=== PATIENT | female | born 1990 | race African-American/Black ===

== ENCOUNTER 2021-05-07 15:23 | Emergency (ER) | payer OTHER ==
[~2021-05-07] VITALS: Ht 139.7 cm; Wt 65.8 kg
--- NOTE | 2021-05-07 15:35 | NUR ---
Patient came in to the er c/o +SI " i want to jump off the building",-HI. On room air, breathing evenly and unlabored. Kept comfortable, will continue to monitor accordingly.
[2021-05-07 16:17] LABS: BASOPHILS % (AUTO) 0.5 % (0.0-2.0); EOSINOPHILS % (AUTO) 1.4 % (0.0-6.0); HEMATOCRIT 41 % (33-45); HEMOGLOBIN 13.7 g/dL (11.5-14.8); LYMPHOCYTES # (AUTO) 1.6 K/uL (0.8-4.8); LYMPHOCYTES % (AUTO) 18.4 % (20.0-44.0); MEAN CORPUSCULAR HGB CONC 34 g/dl (31.0-36.0); MEAN CORPUSCULAR VOLUME 99 fL (82-100); MONOCYTES # (AUTO) 0.6 K/uL (0.1-1.30); MONOCYTES % (AUTO) 6.6 % (2.0-12.0); NEUTROPHILS # (AUTO) 6.4 K/uL (1.8-8.9); NEUTROPHILS % (AUTO) 73.1 % (43.0-81.0); PLATELET COUNT (AUTO) 216 K/uL (150-450); WHITE BLOOD COUNT (AUTO) 8.8 K/uL (4.3-11.0)
[2021-05-07 16:24] LABS: CALCIUM, SERUM 8.9 mg/dL (8.5-10.1); CARBON DIOXIDE 26 mmol/L (21-32); CHLORIDE 103 mmol/L (98-107); CREATININE 0.8 mg/dL (0.6-1.3); GLUCOSE 108 mg/dL (74-106); POTASSIUM 3.5 mmol/L (3.5-5.1); SODIUM SERUM 137 mmol/L (136-145); UREA NITROGEN, BLOOD 7 mg/dL (7-18)
[2021-05-07 16:26] LABS: BILIRUBIN,URINE NEGATIVE (NEGATIVE); COLOR,URINE YELLOW (YELLOW); LEUKOCYTE ESTERASE ,URINE LARGE (NEGATIVE); NITRITE, URINE NEGATIVE (NEGATIVE); PROTEIN,URINE NEGATIVE (NEGATIVE); UGLUCOSE NEGATIVE (NEGATIVE); UROBILINOGEN,URINE 0.2 EU/dL (0.2)
[2021-05-07 16:30] LABS: ALANINE AMINOTRANSFERASE 38 U/L (12-78); ALBUMIN 3.6 g/dL (3.4-5.0); ALCOHOL, BLOOD < 3 mg/dL (0-0); ALKALINE PHOSPHATASE 79 U/L (46-116); ASPARTATE AMINOTRANSFERASE 46 U/L (15-37); BILIRUBIN,DIRECT 0.1 mg/dL (0.0-0.2); BILIRUBIN,TOTAL 0.4 mg/dL (0.2-1.0); TOTAL PROTEIN, SERUM 7.9 g/dL (6.4-8.2)
[2021-05-07 16:31] LABS: WBC,URINE 51-80 /HPF (0-3)
[2021-05-07 16:31] LABS: ACETAMINOPHEN < 2 ug/ml (10-30)
[2021-05-07 16:32] LABS: BACTERIA,URINE 3+ /HPF (None Seen); SQUAMOUS EPITHELIAL CELL,UR Moderate /HPF (None Seen)
--- NOTE | 2021-05-07 17:15 | NUR ---
[facility]
--- NOTE | 2021-05-07 18:14 | NUR ---
patient verbalized ' i am not suicidal anymore", i want to leave. Denies HI.
[2021-05-07 18:15] VITALS: BP 118/70
--- NOTE | 2021-05-07 18:16 | NUR ---
Patient given written and verbal discharge instructions. Patient verbalizes understanding of instructions. Patient is ambulatory with steady gait. Refuses offer of assisted placement. Patient given list of available shelters in surrounding area.
== END 2021-05-07 18:15 | disposition home or self-care (01) ==
LOC: ER 15:35
DX: R45.851 Suicidal ideations (principal); F31.30 Bipolar disorder, current episode depressed, mild or moderate severity, unspecified; F20.9 Schizophrenia, unspecified; J45.909 Unspecified asthma, uncomplicated; Z88.0 Allergy status to penicillin; Z20.822 Contact with and (suspected) exposure to COVID-19; Z53.8 Procedure and treatment not carried out for other reasons; Z59.0 Homelessness
CPT/HCPCS: 36415; 80048; 80076; 80143; 80307; 80320; 81001; 84703; 85025; 87086; 87426; 99285; C9803; G0480

== ENCOUNTER 2021-06-19 14:23 | Emergency (ER) | payer OTHER ==
[~2021-06-19] VITALS: Ht 139.7 cm; Wt 76.2 kg
--- NOTE | 2021-06-19 14:43 | NUR ---
BIBRA TO ER BED 19. AAOX4. NOT IN RESP DISTRESS. AMBULATORY. BROUGHT IN FOR SUICIDAL IDEATION W/ PLAN TO JUMP OFF BUILDING. DENIES HOMICIDAL IDEATION. PT IS GOWNED AND BELONGINGS IN LOCKER. 1:1 SITTER AT BEDSIDE. WILL CONTINUE TO MONITOR
[2021-06-19 15:21] LABS: BASOPHILS # (AUTO) 0.1 K/uL (0.0-0.2); EOSINOPHILS % (AUTO) 2.4 % (0.0-6.0); HEMATOCRIT 43 % (33-45); HEMOGLOBIN 14.7 g/dL (11.5-14.8); LYMPHOCYTES # (AUTO) 2.2 K/uL (0.8-4.8); LYMPHOCYTES % (AUTO) 25.9 % (20.0-44.0); MEAN CORPUSCULAR HGB CONC 34 g/dl (31.0-36.0); MEAN CORPUSCULAR VOLUME 98 fL (82-100); MONOCYTES # (AUTO) 0.4 K/uL (0.1-1.30); MONOCYTES % (AUTO) 4.3 % (2.0-12.0); NEUTROPHILS # (AUTO) 5.7 K/uL (1.8-8.9); NEUTROPHILS % (AUTO) 66.4 % (43.0-81.0); PLATELET COUNT (AUTO) 373 K/uL (150-450); RED BLOOD CELL COUNT(AUTO) 4.38 MIL/uL (4.0-5.2); WHITE BLOOD COUNT (AUTO) 8.7 K/uL (4.3-11.0)
[2021-06-19 15:30] LABS: CALCIUM, SERUM 9.2 mg/dL (8.5-10.1); CARBON DIOXIDE 23 mmol/L (21-32); CHLORIDE 103 mmol/L (98-107); GLUCOSE 119 mg/dL (74-106); POTASSIUM 3.7 mmol/L (3.5-5.1); SODIUM SERUM 137 mmol/L (136-145); UREA NITROGEN, BLOOD 15 mg/dL (7-18)
[2021-06-19 15:44] LABS: ACETAMINOPHEN < 0 ug/ml (10-30); ALANINE AMINOTRANSFERASE 48 U/L (12-78); ALBUMIN 3.9 g/dL (3.4-5.0); ALCOHOL, BLOOD 4 mg/dL (0-0); ALKALINE PHOSPHATASE 101 U/L (46-116); ASPARTATE AMINOTRANSFERASE 30 U/L (15-37); BILIRUBIN,DIRECT 0.1 mg/dL (0.0-0.2); BILIRUBIN,TOTAL 0.3 mg/dL (0.2-1.0); TOTAL PROTEIN, SERUM 8.7 g/dL (6.4-8.2)
[2021-06-19 16:53] LABS: BILIRUBIN,URINE Negative (NEGATIVE); COLOR,URINE YELLOW (YELLOW); LEUKOCYTE ESTERASE ,URINE Negative (NEGATIVE); NITRITE, URINE Negative (NEGATIVE); PH,URINE 5.5 (5.0-8.0); PROTEIN,URINE Negative (NEGATIVE); UGLUCOSE Negative (NEGATIVE); UROBILINOGEN,URINE 0.2 EU/dL (0.2)
[2021-06-19 17:01] LABS: BACTERIA,URINE Few /HPF (None Seen); SQUAMOUS EPITHELIAL CELL,UR Few /HPF (None Seen); WBC,URINE 0-2 /HPF (0-3)
--- NOTE | 2021-06-19 18:22 | NUR ---
PAPER FAXED TO [facility] ALEX[facility]ER AT 18:23
--- NOTE | 2021-06-19 19:05 | NUR ---
pt resting with eyes closed. Easily arousable. VSS
--- NOTE | 2021-06-19 22:45 | NUR ---
Patient is resting comfortably in bed with eyes closed. Easily aroused. VSS
--- NOTE | 2021-06-20 01:30 | NUR ---
pt attached to monitor and pox. vss
--- NOTE | 2021-06-20 03:15 | NUR ---
Patient is resting comfortably in bed with eyes closed. Easily aroused. VSS
--- NOTE | 2021-06-20 10:09 | NUR ---
PT ACCEPTED TO [facility]. NUMBER FOR REPORT [phone]. [phone]. ACCEPTING DR. CAMACHO. HOUSE SUP ASKING IF WE CAN SEND PATIENT AT 12.
--- NOTE | 2021-06-20 10:40 | NUR ---
SS Consult: SS Consult requested for SI & Homelessness. The pt. is a 30 year old Black female. The pt. appears unkempt is A&O X4 and makes good eye contact. Pt.'s speech is WNL and pt.'s mood is depressed with flat affect. Pt. states he came to the hospital because he has been having SI since yesterday w/plan to jump off a building. Pt. states he has been having auditory hallucinations that tell her to jump off a building. Pt. stated she has visual hallucinations and, "Can't describe them". Pt. denies HI. JOSE EDUARDO offered pt. voluntary admission to a psych facility for treatment and pt. is agreeable. JOSE EDUARDO explored pt.'s mental health Hx. Pt. stated he has been diagnosed with Schizoaffective disorder and has been prescribed Seroquel, Abilify, and Lexapro in the past. Pt. states she is compliant with meds. JOSE EDUARDO explored pt.'s living situation. Pt. states he has been homeless for a "10 years" and stays in shelters or the street. JOSE EDUARDO explored pt.'s drug & ETOH use. Patient drug & alcohol use. Pt. states she is ambulatory. JOSE EDUARDO explored pt.'s support system. Pt. states he has no family or friends. Pt. states he receives Food stamps, GR, SSDI benefits. Plan: JOSE EDUARDO has been referred pt[facility] [place] [address] FAX:[phone]] for inpatient psychiatric treatment and is pending admission. Pt. refused to sign homeless waiver and it was placed in the chart. JOSE EDUARDO provided pt. with homeless, and mental health resources and he accepted them : Year-round shelters: [place] [address] [place] [place] [address] ; [facility] [place] [address] [place] [address]; [facility] Aejvwef5684 [facility] [address] Winter Shelters: [place] [facility] Provider: [facility] [place] Address: [facility] NRafael Francoadena, [address] # of Beds: 47 Population Served: [facility] SPA 6 | [facility] Sarah Su [place] Provider: Home at Last Address: [address] [place] [address], [address] # of Beds: 66 Population Served: [facility] Hector [place] Provider: First to Serve Address: [address] [facility], [address] # of Beds: 56 Population Served: [facility] Darwin [place] Provider: SSHero/Ms. [facility] Address: 8999 [facility], [address] # of Beds: 49 Population Served: [facility] SPA 8 | [facility] Provider: First to Serve Address: 0385 [facility], [address] # of Beds: 37 Population Served: [facility] Hygiene: [place] [facility]: [address] [facility] ; [place] [facility] [address] [facility] ; [facility] 6909 [facility] . Food Resources: [place] [facility] at [facility]- 5700 [facility]; Meet Each Need with Dignity ([facility]) [address] [facility]; [facility] Food Pantry 4328 [facility]; [facility] 8531 [facility]. Mental Health resources provided: [facility] [address] [place] [address] ; [facility], Inc[facility] [address] [facility] [address], [place] [address] ; [place] Dayanna [facility] [address] [place] [address] ; [place] [facility] [address] [place], [place] [id number] Healthcare Clinics: [facility] 6551 [facility], [address] [place]. [place] ; [facility] [address] [facility] [address] [facility] [address]; [facility] [address] [facility] [phone]) [phone] Counseling--Outpatient [facility] [address] [facility], [place] [address] (Specializes in in-depth psychotherapy for emotional distress: anxiety, depression, interpersonal conflicts, life transitions, childhood abuse) [facility] [address] [place] [address] (Assist with solving problem marital difficulties, separation & divorce, aging parents, & grief, chronic & terminal illness) [facility] [address] [place] [address] (Deal with loss & grief, anxiety, marital difficulties) Homebound/Mental Health Services [address] [facility], [address] [place] [address] (Provide in-home mental services to people who are incapable of leaving their homes) Organization for Needs of the Elderly Senior Service/Resource Center [address] [address] [address] [facility] 6514 Mac [facility] [place] [address] PSYCHIATRIC OUTPATIENT SERVICES [facility] Partial Hospitalization and Intensive Outpatient Program (Managed Care and [place] Only)[address] [facility] [phone] [facility] Partial Hospitalization and Outpatient Huncsgn16836 [facility] [address] [place], [place] [phone] [facility] Health Vance Ias54552 [facility] [address] [place], [place] [phone] [facility] Partial Hospitalization and Outpatient [id number] eliBaylor Scott & White Medical Center [facility] JohnLA [place], [phone] Substance Abuse resources provided included: [facility] Substance Abuse Self-Helpline ([facility]) ; CRI -HELP [address]14 [facility]. [place] [address] ; [facility] Vance [address] [facility] [address] ; [facility] [address] [facility] [place] [address] ; [facility] 400 [facility] [phone] ; [facility] 2717 Matthew Lopez [facility] [address] ; Niurka [facility] 909 [facility] [phone] ; [facility] Substance Abuse Helpline([facility])-[facility] ; [facility] ; [facility] [place]; Cri-Help [place]; I-ADA Inter Agency Drug Abuse Recovery Matthew Lopez; [place] [facility] [place]; [place]; [facility]'s Vance, Inc. [place]; Alcoholics Anonymous -SFV; Fy-Ukbh-Cqzbqxd ; Marijuana Anonymous -SFV; Narcotics Anonymous www.na.org;
--- NOTE | 2021-06-20 13:32 | NUR ---
CALLED [facility] FOR TRANSPORT TO [facility]. ETA 45-60 MINUTES.
[2021-06-20 14:00] VITALS: BP 110/80
--- NOTE | 2021-06-20 14:13 | NUR ---
patient picked up by private ambulance in no distress going to [facility] for voluntary psyche admission.
== END 2021-06-20 14:13 ==
LOC: ER 14:24
DX: R45.851 Suicidal ideations (principal); F31.9 Bipolar disorder, unspecified; F20.9 Schizophrenia, unspecified; J45.909 Unspecified asthma, uncomplicated; F19.10 Other psychoactive substance abuse, uncomplicated; Z20.822 Contact with and (suspected) exposure to COVID-19
CPT/HCPCS: 36415; 80048; 80076; 80143; 80307; 80320; 81001; 84703; 85025; 87426; 99285; C9803; G0480

== ENCOUNTER 2021-08-30 16:25 | Emergency (ER) | payer OTHER ==
[~2021-08-30] VITALS: Ht 139.7 cm; Wt 83.0 kg
[2021-08-30 17:27] LABS: BASOPHILS # (AUTO) 0.1 K/uL (0.0-0.2); BASOPHILS % (AUTO) 0.7 % (0.0-2.0); EOSINOPHILS % (AUTO) 1.6 % (0.0-6.0); HEMATOCRIT 39 % (33-45); LYMPHOCYTES % (AUTO) 18.9 % (20.0-44.0); MEAN CORPUSCULAR HGB CONC 33 g/dl (31.0-36.0); MEAN CORPUSCULAR VOLUME 98 fL (82-100); MONOCYTES # (AUTO) 0.6 K/uL (0.1-1.30); MONOCYTES % (AUTO) 5.9 % (2.0-12.0); NEUTROPHILS # (AUTO) 7.5 K/uL (1.8-8.9); NEUTROPHILS % (AUTO) 72.9 % (43.0-81.0); PLATELET COUNT (AUTO) 352 K/uL (150-450); RED BLOOD CELL COUNT(AUTO) 4.03 MIL/uL (4.0-5.2); WHITE BLOOD COUNT (AUTO) 10.4 K/uL (4.3-11.0)
[2021-08-30 17:40] LABS: ALANINE AMINOTRANSFERASE 59 U/L (12-78); ALBUMIN 3.8 g/dL (3.4-5.0); ALKALINE PHOSPHATASE 95 U/L (46-116); ASPARTATE AMINOTRANSFERASE 22 U/L (15-37); BILIRUBIN,DIRECT 0.2 mg/dL (0.0-0.2); BILIRUBIN,TOTAL 0.8 mg/dL (0.2-1.0); CALCIUM, SERUM 8.6 mg/dL (8.5-10.1); CARBON DIOXIDE 27 mmol/L (21-32); CHLORIDE 102 mmol/L (98-107); GLUCOSE 92 mg/dL (74-106); POTASSIUM 3.6 mmol/L (3.5-5.1); SODIUM SERUM 136 mmol/L (136-145); TOTAL PROTEIN, SERUM 8.5 g/dL (6.4-8.2); UREA NITROGEN, BLOOD 12 mg/dL (7-18)
[2021-08-30 17:47] LABS: ACETAMINOPHEN < 0 ug/ml (10-30); ALCOHOL, BLOOD < 3 mg/dL (0-0)
--- NOTE | 2021-08-30 18:01 | NUR ---
urine collected and sent to the lab
[2021-08-30 18:18] LABS: BILIRUBIN,URINE NEGATIVE (NEGATIVE); COLOR,URINE YELLOW (YELLOW); LEUKOCYTE ESTERASE ,URINE NEGATIVE (NEGATIVE); NITRITE, URINE NEGATIVE (NEGATIVE); PROTEIN,URINE NEGATIVE (NEGATIVE); UGLUCOSE NEGATIVE (NEGATIVE); UROBILINOGEN,URINE 0.2 EU/dL (0.2)
[2021-08-30 18:21] LABS: BACTERIA,URINE Few /HPF (None Seen); SQUAMOUS EPITHELIAL CELL,UR Few /HPF (None Seen); WBC,URINE 0-2 /HPF (0-3)
--- NOTE | 2021-08-30 18:22 | NUR ---
covid swab done and sent to the lab
[2021-08-30] MEDS ORDERED: LORAZEPAM 1 MG TABLET PO ONE (19:00)
--- NOTE | 2021-08-30 19:13 | NUR ---
FACESHEET AND CLINICALS FAXED TO [facility].
[2021-08-30] MEDS ORDERED: LORAZEPAM 1 MG TABLET ONE (19:29)
--- NOTE | 2021-08-30 20:15 | NUR ---
pt sitting quietly, watching tv, attached to monitor and pox.vss
--- NOTE | 2021-08-30 22:22 | NUR ---
PATIENT RESTING COMFORTABLY NO COMPLAINTS AT THIS TIME.
--- NOTE | 2021-08-30 23:27 | NUR ---
Patient is resting comfortably in bed with eyes closed. Easily aroused. VSS
--- NOTE | 2021-08-31 00:45 | NUR ---
Patient is resting comfortably in bed with eyes closed. Easily aroused. VSS
--- NOTE | 2021-08-31 01:45 | NUR ---
pt used restroom, needs met
--- NOTE | 2021-08-31 02:29 | NUR ---
FROM ART RECIEVED ACCEPTANCE INFORMATION TO [facility] ACCEPTING MD # FOR REPORT
--- NOTE | 2021-08-31 02:30 | NUR ---
PATIENT ALERT AND ORIENTED, NO COMPLAINTS AT THIS TIME.
--- NOTE | 2021-08-31 02:35 | NUR ---
REPORT GIVEN TO CHAVA AT [facility]
--- NOTE | 2021-08-31 02:38 | NUR ---
TRANSPORTATION ARRANGED WITH [facility] ETA [phone].
[2021-08-31 05:01] VITALS: BP 117/78
--- NOTE | 2021-08-31 05:18 | NUR ---
gave report to ems
== END 2021-08-31 05:18 ==
LOC: ER 16:27
DX: R45.851 Suicidal ideations (principal); F20.9 Schizophrenia, unspecified; F31.9 Bipolar disorder, unspecified; Z20.822 Contact with and (suspected) exposure to COVID-19; J45.909 Unspecified asthma, uncomplicated; Z88.0 Allergy status to penicillin
CPT/HCPCS: 36415; 80048; 80076; 80143; 80307; 80320; 81001; 84703; 85025; 87426; 99285; C9803; G0480

== ENCOUNTER 2021-09-12 20:11 | Emergency (ER) | payer OTHER ==
[~2021-09-12] VITALS: Ht 139.7 cm; Wt 83.0 kg
--- NOTE | 2021-09-12 23:09 | NUR ---
PT AAOX4. AMBULATORY WITH STEADY GAIT. BIBS FOR C/O DEPRESSION, SCHIZO AND BIPOLAR. REQUESTING VOLUNTARY ADMISSION TO [facility] MI[facility]ON.
[2021-09-12 23:35] LABS: BASOPHILS # (AUTO) 0.1 K/uL (0.0-0.2); BASOPHILS % (AUTO) 0.8 % (0.0-2.0); EOSINOPHILS % (AUTO) 0.4 % (0.0-6.0); HEMATOCRIT 43 % (33-45); HEMOGLOBIN 14.4 g/dL (11.5-14.8); LYMPHOCYTES # (AUTO) 1.4 K/uL (0.8-4.8); LYMPHOCYTES % (AUTO) 16.1 % (20.0-44.0); MEAN CORPUSCULAR HGB CONC 34 g/dl (31.0-36.0); MEAN CORPUSCULAR VOLUME 96 fL (82-100); MONOCYTES # (AUTO) 0.5 K/uL (0.1-1.30); MONOCYTES % (AUTO) 5.9 % (2.0-12.0); NEUTROPHILS # (AUTO) 6.9 K/uL (1.8-8.9); NEUTROPHILS % (AUTO) 76.8 % (43.0-81.0); PLATELET COUNT (AUTO) 343 K/uL (150-450); RED BLOOD CELL COUNT(AUTO) 4.45 MIL/uL (4.0-5.2)
[2021-09-12 23:44] LABS: CALCIUM, SERUM 9.1 mg/dL (8.5-10.1); CARBON DIOXIDE 25 mmol/L (21-32); CHLORIDE 102 mmol/L (98-107); GLUCOSE 120 mg/dL (74-106); POTASSIUM 4.3 mmol/L (3.5-5.1); SODIUM SERUM 138 mmol/L (136-145); UREA NITROGEN, BLOOD 13 mg/dL (7-18)
[2021-09-12 23:51] LABS: ACETAMINOPHEN 0 ug/ml (10-30); ALANINE AMINOTRANSFERASE 32 U/L (12-78); ALBUMIN 3.9 g/dL (3.4-5.0); ALCOHOL, BLOOD < 3 mg/dL (0-0); ALKALINE PHOSPHATASE 94 U/L (46-116); ASPARTATE AMINOTRANSFERASE 20 U/L (15-37); BILIRUBIN,DIRECT 0.1 mg/dL (0.0-0.2); BILIRUBIN,TOTAL 0.2 mg/dL (0.2-1.0); TOTAL PROTEIN, SERUM 9.1 g/dL (6.4-8.2)
--- NOTE | 2021-09-13 00:38 | NUR ---
URINE COLLECTED AND SENT TO LAB
[2021-09-13 00:51] LABS: BILIRUBIN,URINE Negative (NEGATIVE); COLOR,URINE LIGHT YELLOW (YELLOW); LEUKOCYTE ESTERASE ,URINE Negative (NEGATIVE); NITRITE, URINE Negative (NEGATIVE); PH,URINE 5.5 (5.0-8.0); PROTEIN,URINE Negative (NEGATIVE); UGLUCOSE Negative (NEGATIVE); UROBILINOGEN,URINE 0.2 EU/dL (0.2)
[2021-09-13 01:07] LABS: BACTERIA,URINE Many /HPF (None Seen); RBC,URINE 0-2 /HPF (0-2); SQUAMOUS EPITHELIAL CELL,UR Many /HPF (None Seen); WBC,URINE 0-2 /HPF (0-3); YEAST,URINE Moderate /HPF (None Seen)
[2021-09-13] MEDS ORDERED: LABETALOL HCL (100MG) 100 MG TABLET ONE (02:09)
[2021-09-13] MEDS ORDERED: LORAZEPAM 1 MG TABLET ONE (02:09)
[2021-09-13] MEDS ORDERED: OLANZAPINE 5 MG TABLET ONE (02:09)
[2021-09-13] MEDS ORDERED: LABETALOL HCL (100MG) 100 MG TABLET PO ONE (02:30)
[2021-09-13] MEDS ORDERED: LORAZEPAM 1 MG TABLET PO ONE (02:30)
[2021-09-13] MEDS ORDERED: OLANZAPINE 5 MG TABLET PO ONE (02:30)
--- NOTE | 2021-09-13 04:30 | NUR ---
FACESHEET AND CLINICALS FAXED TO [facility].
--- NOTE | 2021-09-13 08:08 | NUR ---
THE PATIENT IS ALERT AND ORIENTED X3. DENIES PAIN. IN ROOM AIR AND DENIES SOB. RESPIRATION REGULAR AND UNLABORED. BRAEKFAST PROVIDED. WILL CONTINUE TO MONITOR THE PATIENT.
--- NOTE | 2021-09-13 09:29 | NUR ---
PT ACCEPTED TO [facility] UNDER DR. EDMONDSON CALL [phone] AFTER 1400 FOR REPPORT.
--- NOTE | 2021-09-13 09:44 | NUR ---
REPORT GIVEN TO NURSE JENKINS FROM [facility]ON[facility] ALEXANDER
[2021-09-13 12:05] VITALS: BP 132/77
--- NOTE | 2021-09-13 12:37 | NUR ---
"SS Consult: SS consult for medical clearance. Pt. Is a 31-year-old female. Pt. demonstrates adequate insight to the reason for hospitalization. Per pt., she was brought to hospital due to thoughts of SI. Per pt., she no longer has thoughts of hurting self or others. Pt. was oriented x3, alert, and cooperative. During interview, pt. was capable of following directions, and made appropriate eye-contact. JOSE EDUARDO explored pt.'s Hx of mental health and substance abuse. Pt. reported no Hx of mental health, HI, denied AH/VH, paranoia or delusions. Per pt., she does not want to answer questions regarding substance abuse. JOSE EDUARDO explored pt.'s living situation. Per pt., she lives on the streets, has no place to shower or change. Per pt., she reports having no adequate support. JOSE EDUARDO explored pt.'s financial status. Per pt., she receives food stamps and SSI. Pt. expressed that she wants to go to [facility]. JOSE EDUARDO spoke with ED nurse, and reports has already been made. Pt. can be transferred after 2:00pm. Pt. denied signing Homeless Waiver. Per pt., she stated that [facility] will help her and she refuse resources at this time. Plan: SW provided available resources and pt. denied. Reports have been made to [facility] according to ED Nurse. Pt. is waiting to be transferred. Resources Provided: Year-round shelters: [facility] [address] [place] [place] [address] ; [place] [facility] [address] [place] [address]; [facility] [id number] [facility] [address] Winter Shelters: Vaishnavi Dwyer [place] Provider: [facility] [place] Address: [address], [address] # of Beds: 47 Population Served: [facility] 6 | [facility] Sarah Su Evelia Provider: Home at Last Address: [address] [place] [address], [address] # of Beds: 66 Population Served: [facility] [place] Provider: First to Serve Address: [address] [facility], [address] # of Beds: 56 Population Served: [place] Darwin [place] Provider: /Ms. Goldman[facility] House Address: [address] [facility], [address] # of Beds: 49 Population Served: [place] SPA 8 | [facility] Provider: First to Serve Address: [address] [facility]. [place], [address] # of Beds: 37 Population Served: [place] Hygiene: [place] [facility]: [address] [place] ; [place] [facility] [address] [facility] ; [facility] [address] [place] . Food Resources: [place] Food Pantry at [facility]- 5700 [facility]; Meet Each Need with Dignity ([facility]) [address] [facility]; [facility] Food Pantry 4357 [facility]; [facility] 8543 [facility]. Mental Health resources provided: [facility] [address] [place], [place] [id number] ; [facility] Mental Health [place], Inc. [address] [facility] [address], [place], [place] [phone] ; [place] Dayanna [facility] [address] [place] [address] ; [facility] [address] [place], [place] 12[address] Healthcare Clinics: [facility] 6551 [facility], [address] [place]. [place] ; [facility] Clinic 68[address] [facility] [address] [place] [address]; [facility] [address] [place] [address] [phone]) [phone] Counseling--Outpatient [facility] [address] [place] Cec[address] Castro, [address] [place], [place] [address] (Specializes in in-depth psychotherapy for emotional distress: anxiety, depression, interpersonal conflicts, life transitions, childhood abuse) [facility] [address] [place], [place] [phone] (Assist with solving problem marital difficulties, separation & divorce, aging parents, & grief, chronic & terminal illness) [facility] [address] [place] [address] (Deal with loss & grief, anxiety, marital difficulties) Homebound/Mental Health Services [address] [address] [facility] [address] [place] [address] (Provide in-home mental services to people who are incapable of leaving their homes) Organization for Needs of the Elderly Senior Service/Resource Center [address] [place] [address] [facility] [address] [place] [address] PSYCHIATRIC OUTPATIENT SERVICES [facility] Partial Hospitalization and Intensive Outpatient Program (Managed Care and [place] Only)[address] [address] [place] BlodetteColquitt Regional [facility] [phone] [facility] Partial Hospitalization and Outpatient [id number] [address] [place] [facility] [address] [place], [place] [phone] On license of [facility] Hof62778 [address]ori [address]ae[address] [place], [place] [phone] [facility] Partial Hospitalization and Outpatient Ahqzefj96038 eli[place], [phone] Substance Abuse resources provided included: [facility] Substance Abuse Self-Helpline (SAS) ; CRI -HELP [address] [facility]. [place] [address] ; [facility] [address] [facility] [address] ; [facility] Rehabilitation Program [address] [place] [address] ; [facility] [address] [facility] [address] ; [facility] [place] [facility] Treatment [facility] [address] [facility] [address] ; Niurka [facility] [address] Jessi BlvdCooley Dickinson Hospital [phone] ; [facility] Substance Abuse Helpline(SAS)[facility] ; [facility] ; [facility] [place]; [facility] [place]; Cri-Help [place]; I-ADARP Inter Agency Drug Abuse Recovery Matthew Lopez; [place] [facility] [place]; Zoe [place]; [facility] [place]; [facility]'s [place], [facility]. [place]; Alcoholics Anonymous -SFV; Pv-Rvpi-Hegyvos ; Marijuana Anonymous -SFV; Narcotics Anonymous www.na.org;"
--- NOTE | 2021-09-13 12:38 | NUR ---
[facility] CALLED ASKED FOR ETA OF 1430 SPOKE WITH KEO.
--- NOTE | 2021-09-13 15:54 | NUR ---
[facility].
== END 2021-09-13 15:55 ==
LOC: ER 20:25
DX: F20.9 Schizophrenia, unspecified (principal); F15.10 Other stimulant abuse, uncomplicated; R00.0 Tachycardia, unspecified; F17.210 Nicotine dependence, cigarettes, uncomplicated; F31.9 Bipolar disorder, unspecified; Z88.0 Allergy status to penicillin; R03.0 Elevated blood-pressure reading, without diagnosis of hypertension; F41.9 Anxiety disorder, unspecified; Z20.822 Contact with and (suspected) exposure to COVID-19; Z59.02 Unsheltered homelessness
CPT/HCPCS: 36415; 80048; 80076; 80143; 80307; 80320; 81001; 84702; 85025; 87086; 87426; 93005; 99285; 99406; C9803; G0480